=== PATIENT | male | born 1960 | race Caucasian/White ===

== ENCOUNTER 2024-12-14 18:54 | Inpatient (IN) | payer MEDICAID, SELFPAY ==
[2024-12-14 18:57] VITALS: BMI 28.0
[2024-12-14 19:09] VITALS: BP 122/83; BP 152/83; PULSE 62; RESP 24; TEMP 36.7; O2SAT 100
--- NOTE | 2024-12-14 19:15 | XR_ITS ---
Examination: AP chest single view TECHNIQUE: AP portable supine chest single view Date and time: December 14, 2024 1935 hours INDICATIONS: Chest pain and weakness today. FINDINGS: Reduced inspiratory effort Normal heart size Subsegmental atelectasis the right base No pulmonary edema or lobar pneumonia. IMPRESSION: No pulmonary edema or lobar pneumonia
--- NOTE | 2024-12-14 19:17 | PD.EDRME ---
Rapid Medical Screening Exam [facility] Arrival date/time: 12/14/24 18:54 64M with history of inguinal hernia and no known PMH (patient doesn't go to doctors) presents to ED with 1 day of ab pain, weakness, and N/V. Chief Complaint: Abdominal Pain Vital signs: Vital Signs Pulse Rate 62 12/14/24 19:09 Respiratory Rate 24 H 12/14/24 19:09 Blood Pressure 152/83 H 12/14/24 19:09 Pulse Oximetry (%) 100 12/14/24 19:09
--- NOTE | 2024-12-14 19:30 | EDNOTE_ITS ---
ED Abdominal Pain RME/HPI General Chief Complaint: Abdominal Pain Stated complaint: ABD PAIN Time seen by provider: 12/14/24 19:24 Arrival date/time: 12/14/24 18:54 Source: patient and family (Son) Mode of arrival: wheelchair Limitations: no limitations RME / HPI RME / HPI narrative: 12/14/24 18:54 64M with history of inguinal hernia and no known PMH (patient doesn't go to doctors) presents to ED with 1 day of ab pain, weakness, and N/V. DR. PACHECO?Danielle MAIN ED EVALUATION: 64-year-old male with history of inguinal hernia presenting to the emergency department via private auto in wheelchair BIB son who is presenting for chief complaint of severe, sharp and diffused abdominal pain that is worse in the right inguinal area x 0500 hours. Per son, patient has had inguinal hernia for a very long time . No associated symptoms include nausea or urinary symptoms. Denies any heavy lifting or straining to go to the bathroom. Patient denies any other associated symptoms or medical complaints. - PMH: Inguinal hernia - PSH: Denies - Social history: Denies - Current medications: Reviewed PCP is N/A MD complaint: abdominal pain Onset (ago): hour(s) (14) Consistency: constant Location: diffuse Severity: severe Quality: sharp Radiation: suprapubic Migration to: suprapubic Context: other (Inguinal hernia) Associated symptoms: other (No vomiting, no fever, no chills, positive nausea. No dysuria.) Treatments prior to arrival: other Related Data Allergies Allergy/AdvReac Type Severity Reaction Status Date / Time No Known Allergies Allergy Verified 12/14/24 19:01 Review of Systems Review of Systems Systems Reviewed: All systems reviewed, normal except as documented Gastrointestinal Gastrointestinal: Reports abdominal pain, Denies nausea and Denies vomiting Genitourinary Genitourinary: Denies difficulty urinating, Denies dysuria, Reports testicular pain, Denies urinary incontinence and Denies urinary urgency Past Medical History Past Medical History GENITOURINARY: Positive Inguinal Hernia Social History SMOKING STATUS: Current some day smoker ED Exam General Limitations: Present no limitations; Absent altered mental status General appearance: Present in distress and other (Appears acutely uncomfortable, shaking, dry mucous membranes) Head Head exam: Present atraumatic Eye Eye exam: Present normal appearance, PERRL and EOMI; Absent scleral icterus or conjunctival injection ENT ENT exam: Present normal exam, normal oropharynx and mucous membranes dry Neck Neck exam: Present normal inspection and full ROM; Absent tenderness or meningismus Chest Chest inspection: Present normal inspection and symmetric chest wall rise; Absent rash Respiratory Respiratory exam: Present normal lung sounds bilaterally; Absent respiratory distress, wheezes or stridor Cardiovascular Cardiovascular exam: Present other (Hypotensive) Abdominal Exam Abdominal exam: Present guarding, diminished bowel sounds and other (Fullness to right inguinal area, No tightness, ); Absent distention or rebound exam: Present scrotal swelling, normal testicular lie and other (Nurse at the bedside during the exam. Bilateral testicular swelling the size of grapefruit's, right greater than left. No overlying skin changes. No color change. Right inguinal fullness and tenderness palpation. Unable to discern testicle versus scrotum.); Absent testicular tenderness or circumcised Expanded Exam Scrotal exam: bilateral: testicular swelling (8 cm BL) Extremities Exam Extremities exam: Present normal inspection and full ROM; Absent normal capillary refill, pedal edema or joint swelling Back Exam Back exam: Present normal inspection and full ROM; Absent CVA tenderness (R) or CVA tenderness (L) Neurological Exam Neurological exam: Present alert, oriented X3 and CN II-XII intact Psychiatric Psychiatric exam: Present normal affect and normal mood Skin Skin exam: Present warm, dry, intact and normal color Course Course Course Narrative: CXR is ordered for determining etiology of weakness. Quality Measures none Orders Category Date Time Status CT Screening NOW Care 12/14/24 19:[address] Screening NOW Care 12/14/24 19:32 Completed EKG (ED ONLY) *Do not use* NOW Care 12/14/24 19:15 Completed Insert IV NOW Care 12/14/24 19:15 Active Consult to General Surgery Stat Cons 12/14/24 22:[address] angio chest abdomen pelvis Stat Exams 12/14/24 19:32 Completed EKG (ED Only) Stat Exams 12/14/24 19:15 Ordered XR chest 1V portable Stat Exams 12/14/24 19:15 Completed B-Type Natriuretic Peptide Stat Lab 12/14/24 19:42 Completed Blood Culture (Lab) Stat Lab 12/14/24 19:43 Received CBC Stat Lab 12/14/24 19:42 Completed Comprehensive Metabolic Panel Stat Lab 12/14/24 19:42 Completed Drug Screen,Urine Stat Lab 12/14/24 19:15 Ordered Lactate (Lactic Acid) Stat Lab 12/14/24 19:42 Completed Lactic Acid, 3 HR Stat Lab 12/14/24 22:55 Completed Lipase Stat Lab 12/14/24 19:42 Completed Magnesium Stat Lab 12/14/24 19:42 Completed Partial Thromboplastin Time Stat Lab 12/14/24 19:42 Completed Procalcitonin Stat Lab 12/14/24 19:42 Completed Prothrombin Time with INR Stat Lab 12/14/24 19:42 Completed Troponin I Stat Lab 12/14/24 19:42 Completed Type and Screen Stat Lab 12/14/24 23:07 Completed Urinalysis Stat Lab 12/14/24 19:15 Ordered HYDROmorphone INJ [Dilaudid Inj] Med 12/14/24 23:07 Active 1 mg IVP Q4HR PRN HYDROmorphone INJ [Dilaudid Inj] Med 12/14/24 22:34 Discontinued 1 mg IVP X1 ONE Morphine Inj Med 12/14/24 23:07 Active 2 mg IVP Q6HR PRN Morphine Inj Med 12/14/24 19:29 Discontinued 4 mg IVP X1 ONE Morphine Inj Med 12/14/24 22:08 Discontinued 4 mg IVP X1 ONE Ondansetron Inj [Zofran Inj] Med 12/14/24 19:17 Discontinued 4 mg IV X1 ONE Ondansetron Inj [Zofran Inj] Med 12/14/24 22:41 Discontinued 4 mg IVP X1 ONE Ringers Lactated 1000 ml [Lactated Ringers] 1,000 ml Med 12/14/24 19:15 Discontinued IV 999 mls/hr Sodium Chloride 0.9% 1000 ml [Ns] 1,000 ml Med 12/14/24 19:15 Active IV 100 mls/hr Sodium Chloride 0.9% 1000 ml [Ns] 1,000 ml Med 12/14/24 22:41 Discontinued IV 999 mls/hr Vital Signs Vital signs: Vital Signs Temperature 98.1 F 12/14/24 19:09 Pulse Rate 62 12/14/24 19:09 Respiratory Rate 24 H 12/14/24 19:09 Blood Pressure 152/83 H 12/14/24 19:09 Pulse Oximetry (%) 100 12/14/24 19:09 Abdominal Pain MDM MDM Narrative MDM Narrative:: Scribe Attestation: 12/14/2024 - I, Donna Alexander, am scribing for and in the presence of Dr. Pacheco. Provider Notation: Although this document has been carefully reviewed, there may still be some phonetic and other typographical errors.? These errors are purely grammatical due to imperfections in the software program and should not be construed in any way to compromise the substance of the patient's medical care during this visit. 64-year-old male with history of inguinal hernia presenting to the emergency department via private auto in wheelchair BIB son who is presenting for chief complaint of severe, sharp and diffused abdominal pain that is worse in the right inguinal area x 0500 hours. ROS: diffused abdominal pain, worse in right inguinal area x 14 hours. EDC: Patient is immediately placed into room to after evaluated at triage. The patient is placed in Trendelenburg and IV morphine is ordered. Because of concern of underlying abdominal emergency, labs and CT of chest abdomen and pelvis are obtained. Patient returns from CT and has slight improvement in pain but is still complaining of pain. Dilaudid is ordered. Patient is not vomiting at this time but I do suspect that this is a surgical problem. Once CT results are back I discussed the case with Dr. Coy, the general surgeon on-call and at this time I recommend that she come and evaluate the patient and likely take the patient to the operating room tonight. 2330: Patient is still not vomiting at this time his pain is slightly improved but still present. Will keep patient NPO. Lactic acid is 2.6 and hemoglobin suggest likely dehydration. Will treat with 20 mL/kg bolus. Procalcitonin is normal. Chest x-ray without pneumonia. No aortic dissection is noted on CT scan. Discussed with the medicine team and they have agreed to admit the patient with surgical consult. 0000: Patient to the OR. Differential diagnoses include ischemic bowel, aortic dissection, intra- abdominal emergency, incarcerated hernia, strangulated hernia, small bowel obstruction, acute pain. Patient data External records reviewed:: [facility] previous records (No prior ED records available for review) Clinical information provided by:: patient and family (Son: Patient has had inguinal hernia for a very long time . ) Social determinants that could affect healthcare access:: none Patient has the following chronic illnesses:: Inguinal hernia How is presenting disease/condition affected by chronic disease/condition?: exacerbated by Evaluation data The following diagnostics were reviewed and interpreted by me:: lab results, radiology exam(s) and EKG tracing(s) (EKG manual reading, December 14, 2024 1912 hours, my interpretation: normal sinus rhythm, 61 BPM, QTc is 420 ms, QRS is 88 ms.) Lab and/or radiology exams considered but not ordered:: None Interpretation Summary: RADIOLOGY Chest X-Ray: CXR, my interpretation: reviewed, interpreted, and agreed with radiologist report; see below. FINDINGS: Reduced inspiratory effort Normal heart size Subsegmental atelectasis the right base No pulmonary edema or lobar pneumonia. IMPRESSION: No pulmonary edema or lobar pneumonia Chest/Abdomen/Pelvis CTA: Findings: AP dimension ascending thoracic aorta 3.9 cm no thoracic aortic aneurysm dilatation Pulmonary artery opacification is poor, no pulmonary artery filling defects No paratracheal tracheobronchial or bronchopulmonary adenopathy COPD with multiple areas of airspace destruction No pneumonia or pulmonary edema Multiple small liver lesions which may represent cysts No gallstones Spleen not enlarged No pancreatic mass Nodular thickening left adrenal gland Lower pole 5.7 cm right renal cyst Multiple fluid distended small bowel loops in the anterior abdomen Normal appendix Edema surrounds some of the small bowel loops in the lower abdomen for instance axial image 427 although no definite free air Incarcerated small bowel is present in a right inguinal hernia Large left inguinal hernia, which contains a portion of the bladder IMPRESSION: Negative for pulmonary artery emboli No pneumonia or pulmonary edema High-grade mechanical small bowel obstruction secondary to incarcerated small bowel in a right inguinal hernia, edema is present surrounding some loops of the small bowel worrisome for ischemic small bowel, recommend surgical consultation LABS WBC 13.8, Hgb 17.2, Neut # 11.0, Immature Gran # 0.07, Immature Gran % 1%. Lactic Acid 2.4, Alkaline Phosphatase 119. Chloride 108, Carbon Dioxide 17.9, Estimated Creatinine Clear Calc 60.8, BUN/Creatinine Ratio 7, Glucose 165, Lactic Acid 2.4. Medications / Prescriptions Medications or Prescriptions considered but not ordered:: None Medication administrations:: Medication Administration History Acetaminophen (Acetaminophen 325 Mg Tablet) 650 mg PO Q6H PRN; Protocol PRN Reason: Fever >100.3 or pain 1-3 Stop: 01/13/25 23:12 Acetaminophen (Acetaminophen Supp 650 Mg Supp) 650 mg [place] Q6HR PRN; Protocol PRN Reason: Fever > 100.3 or pain 1-3 Stop: 01/13/25 23:12 Albuterol/Ipratropium (Albuterol/Ipratropium (Duoneb) Rt Amy 3 Ml Nebu) 3 ml INH Q4HRRT PRN PRN Reason: SHORTNESS OF BREATH Stop: 01/14/25 00:34 Hydromorphone HCl (Hydromorphone Inj 2 Mg/Ml Vial) 1 mg IVP Q4HR PRN PRN Reason: Pain 7-10 Stop: 12/19/24 23:06 Hydromorphone HCl (Hydromorphone Inj 2 Mg/Ml Vial) 0.5 mg IVP Q10MIN PRN PRN Reason: severe pain 7-10 Sodium Chloride (Ns) 1,000 mls @ 100 mls/hr IV .Q10H STEVEN Stop: 01/13/25 19:14 Last Admin: 12/14/24 19:42 Dose: 100 mls/hr Documented By: JUANCHO Labetalol HCl (Labetalol Inj 5 Mg/Ml Vial 20 Ml) 5 mg IVP Q10MIN PRN PRN Reason: SBP >180 DBP>100 or HR >100 Metoprolol Tartrate (Metoprolol Tartrate Inj 1 Mg/Ml Amp 5 Ml) 2.5 mg IVP PRN PRN PRN Reason: Heart Rate- High Stop: 01/14/25 00:34 Morphine Sulfate (Morphine Sulf Inj 10 Mg/Ml Vial) 2 mg IVP Q6HR PRN PRN Reason: pain 4-6 Promethazine HCl (Promethazine Inj 25 Mg/Ml Vial) 12.5 mg IV Q30M PRN PRN Reason: NAUSEA Discontinued Medications Bupivacaine HCl (Bupivacaine Mpf 0.5% 30 Ml Vial) Confirm Administered Dose 30 ml .ROUTE .STK-MED ONE Stop: 12/15/24 01:05 Cefazolin Sodium (Cefazolin Inj 1 Gm Vial) Confirm Administered Dose 2 gm .ROUTE .STK-MED ONE Stop: 12/15/24 00:44 Dexamethasone Sodium Phosphate (Dexamethasone Sod Phos Inj 10 Mg/Ml Vial) Confirm Administered Dose 10 mg .ROUTE .STK-MED ONE Stop: 12/14/24 23:49 Epinephrine HCl (Epinephrine Inj 1 Mg/Ml Amp) Confirm Administered Dose 1 mg .ROUTE .STK-MED ONE Stop: 12/15/24 01:03 Fentanyl Citrate (Fentanyl Cit Inj 50 Mcg/Ml Amp 2ml) Confirm Administered Dose 100 mcg .ROUTE .STK-MED ONE Stop: 12/14/24 23:49 Fentanyl Citrate (Fentanyl Cit Inj 50 Mcg/Ml Amp 2ml) 50 mcg IVP Q5M PRN PRN Reason: PAIN SCALE 4-6 (Moderate Stop: 12/15/24 02:35 Hydralazine HCl (Hydralazine Inj 20 Mg/Ml Vial) 10 mg IVP X1 ONE Stop: 12/15/24 02:35 Hydromorphone HCl (Hydromorphone Inj 2 Mg/Ml Vial) 1 mg IVP X1 ONE Stop: 12/14/24 22:35 Last Admin: 12/14/24 23:13 Dose: 1 mg Documented By: JASPREET Lactated Ringer's (Lactated Ringers) 1,000 mls @ 999 mls/hr IV .Q1H1M ONE Stop: 12/14/24 20:15 Last Infusion: 12/14/24 20:39 Dose: Infused Documented By: Admin: 12/14/24 19:38 Dose: 999 mls/hr Documented By: JUANCHO Sodium Chloride (Ns) 1,000 mls @ 999 mls/hr IV .Q1H1M ONE Stop: 12/14/24 23:41 Last Admin: 12/14/24 23:13 Dose: 999 mls/hr Documented By: PINOR Morphine Sulfate (Morphine Sulf Inj 10 Mg/Ml Vial) 4 mg IVP X1 ONE Stop: 12/14/24 19:30 Last Admin: 12/14/24 20:29 Dose: 4 mg Documented By: MM Morphine Sulfate (Morphine Sulf Inj 10 Mg/Ml Vial) 4 mg IVP X1 ONE Stop: 12/14/24 22:09 Last Admin: 12/14/24 22:16 Dose: 4 mg Documented By: MM Ondansetron HCl (Ondansetron Inj 2 Mg/Ml Inj 2 Ml) 4 mg IV X1 ONE; Protocol Stop: 12/14/24 19:18 Last Admin: 12/14/24 20:30 Dose: 4 mg Documented By: MM Ondansetron HCl (Ondansetron Inj 2 Mg/Ml Inj 2 Ml) 4 mg IVP X1 ONE; Protocol Stop: 12/14/24 22:42 Last Admin: 12/14/24 23:13 Dose: 4 mg Documented By: PINOR Ondansetron HCl (Ondansetron Inj 2 Mg/Ml Inj 2 Ml) Confirm Administered Dose 4 mg .ROUTE .STK-MED ONE Stop: 12/14/24 23:49 Ondansetron HCl (Ondansetron Inj 2 Mg/Ml Inj 2 Ml) 4 mg IVP X1 ONE Stop: 12/15/24 00:36 Phenylephrine HCl (Phenylephrine Inj In Ns 100 Mcg/Ml 10 Ml Syringe) Confirm Administered Dose 1,000 mcg .ROUTE .STK-MED ONE Stop: 12/15/24 00:43 Phenylephrine HCl (Phenylephrine Inj In Ns 100 Mcg/Ml 10 Ml Syringe) Confirm Administered Dose 1,000 mcg .ROUTE .STK-MED ONE Stop: 12/15/24 00:57 Propofol (Propofol Inj 10 Mg/Ml Vial 20 Ml) Confirm Administered Dose 200 mg IV .STK-MED ONE Stop: 12/14/24 23:49 Rocuronium [place] (Rocuronium Inj 10 Mg/Ml Vial 10 Ml) Confirm Administered Dose 100 mg .ROUTE .STK-MED ONE Stop: 12/14/24 23:49 Sugammadex Sodium (Sugammadex Inj 100 Mg/Ml 2ml Vial) Confirm Administered Dose 200 mg .ROUTE .STK-MED ONE Stop: 05/23/25 23:49 See above if any Consultations Consultation(s) initiated? (list below): Yes Consultation #1 (Physician, Specialty, Details): Dr. Coy called for consult. Made aware of the patient?s HPI, PMHx, lab and/or radiology results. Dr. Coy will be coming in for evaluation. Time: 22:37 Consultation #2 (Physician, Specialty, Details): Dr. Mariee, our Hospitalist, made aware of the patient?s HPI, PMHx, lab and/or radiology results. Treatment plan was discussed. Will admit for further evaluation and management. Accepts patient for admission. Time: 22:42 Diagnosis Differential diagnosis abdominal pain: other (dissection, ischemic valve, intra- abdominal emergency, incarcerated hernia) Most likely diagnosis given after review of the tests above:: Small bowel obstruction, Elevated lactic acid, Inguinal hernia of right side with obstruction, Left inguinal hernia. Admission Indicated Admission indicated?: indicated Explain why admission is indicated or not indicated:: Elevated lactic acid, small bowel and inguinal hernia with obstruction. Admission Request Was there a request for admission?: Yes Admission Attestation Admission request attestation: Discussed case with [] from Hospitalist service regarding admission. Discussed patients ED course, exam findings, labs, and radiology results. The Hospitalist [agrees,declines] to accept the patient for admission. Disposition Plan Disposition Plan: Admit Critical Care Time Critical Care Time Critical Care Time: Yes Total Critical Care Time (min.): 45 Attestation: The high probability of sudden, clinically significant deterioration in the patient?s condition required the highest level of my preparedness to intervene urgently. The services I provided to this patient were to treat and/or prevent clinically significant deterioration. Services included the following: chart data review, reviewing nursing notes and/or old charts, documentation time, marketing operations consultant collaboration regarding findings and treatment options, medication orders and management, direct patient care, vital sign assessments and ordering, interpreting and reviewing diagnostic studies and lab tests. This time excludes any procedures done on this patient. Discharge Plan Plan Patient Disposition: Admit Acute Care w/in Hospital Problem List Clinical Impression: Small bowel obstruction, Inguinal hernia of right side with obstruction, Elevated lactic acid level, Hernia, inguinal, left
--- NOTE | 2024-12-14 19:32 | XR_ITS ---
Examination: CTA chest, with intravenous contrast. CTA abdomen, with intravenous contrast. CTA pelvis, with intravenous contrast. 2-D sagittal and coronal reconstructions. 3-D reconstructions. Date and time of exam: 03/16/2025 2048 hours INDICATIONS: Chest and upper abdominal pain weakness today CTDI vol (mgy) 14.9 DLP (MGycm) 1429 Technique: Multiple CTA images, 2.0 mm slice thickness, obtained chest, abdomen, pelvis, with the high-resolution 64 slice scanner. 100 cc Isovue 370 is administered intravenously. Sagittal and coronal 2-D reconstructions are obtained. 3-D reconstructions, angiographic images are obtained. 3-D postprocessing, including vascular maximum intensity projections. Low dose protocols were performed. One or more of the following dose reduction techniques were used; automated exposure control, adjustment of the mA and/or KV according to patient size, use of iterative reconstruction technique. Findings: AP dimension ascending thoracic aorta 3.9 cm no thoracic aortic aneurysm dilatation Pulmonary artery opacification is poor, no pulmonary artery filling defects No paratracheal tracheobronchial or bronchopulmonary adenopathy COPD with multiple areas of airspace destruction No pneumonia or pulmonary edema Multiple small liver lesions which may represent cysts No gallstones Spleen not enlarged No pancreatic mass Nodular thickening left adrenal gland Lower pole 5.7 cm right renal cyst Multiple fluid distended small bowel loops in the anterior abdomen Normal appendix Edema surrounds some of the small bowel loops in the lower abdomen for instance axial image 427 although no definite free air Incarcerated small bowel is present in a right inguinal hernia Large left inguinal hernia, which contains a portion of the bladder IMPRESSION: Negative for pulmonary artery emboli No pneumonia or pulmonary edema High-grade mechanical small bowel obstruction secondary to incarcerated small bowel in a right inguinal hernia, edema is present surrounding some loops of the small bowel worrisome for ischemic small bowel, recommend surgical consultation
[2024-12-14] MEDS: RINGERS LACTATED 1000 ML 1,000 ML 999 ML IV (19:38)
[2024-12-14] MEDS: SODIUM CHLORIDE 0.9% 1000 ML 1,000 ML 100 ML IV (19:42)
[2024-12-14 19:49] LABS: Lactate (Lactic Acid) 2.4 mMol/L (0.4-2.0)
[2024-12-14 19:50] LABS: Basophils # (Auto) 0.1 Thou/mm3 (0.0-0.2); Basophils % (Auto) 0 % (0-2.5); Eosinophils # (Auto) 0.1 Thou/mm3 (0.0-0.5); Eosinophils % (Auto) 1 % (0-10); Hematocrit 49.3 % (41.0-53.0); Hemoglobin 17.2 g/dL (13.5-16.0); Immature Granulocytes % (Auto) 1 % (0-0); Immature Granulocytes Auto 0.07 Thou/mm3 (0.00-0.00); Lymphocytes # (Auto) 1.7 Thou/mm3 (1.0-4.8); Lymphocytes % (Auto) 13 % (10-50); Mean Corpuscular HGB Conc 34.9 g/dl (31.0-37.0); Mean Corpuscular Hemoglobin 29.8 pg (25.0-35.0); Mean Corpuscular Volume 85 fL (80-100); Monocytes # (Auto) 0.8 Thou/mm3 (0.0-0.8); Monocytes % (Auto) 6 % (0-12); Neutrophils % (Auto) 80 % (37-80); Nucleated Red Blood Cell % 0 /100 WBC (0); Platelet Count 291 Thou/mm3 (140-440); RDW Standard Deviation 39.2 fL (35.1-43.9); Red Blood Count 5.77 Miln/mm3 (4.50-5.90); White Blood Count 13.8 Thou/mm3 (3.8-10.6)
[2024-12-14 20:05] LABS: INR 1.1 (0.9-1.3); Partial Thromboplastin Time 26.1 Seconds (22.0-36.0); Prothrombin Time 11.7 Seconds (9.0-12.2)
[2024-12-14 20:07] LABS: B-Type Natriuretic Peptide 28 pg/mL (0-100)
[2024-12-14] MEDS: MORPHINE SULF INJ 10 MG/ML VIAL 4 MG IVP ×2 (20:29→22:16)
[2024-12-14 20:30] LABS: Troponin I < 0.020 ng/mL (0.0-0.045)
[2024-12-14] MEDS: ONDANSETRON INJ 2 MG/ML INJ 2 ML 4 MG IV (20:30)
[2024-12-14 20:44] LABS: Alanine Aminotransferase 20 U/L (10-49); Albumin, Serum 4.6 gm/dL (3.4-4.8); Albumin/Globulin Ratio 1.5 (1.2-2.2); Alkaline Phosphatase 119 U/L (46-116); Anion Gap 14 (7-16); Aspartate Amino Transferase 22 U/L (0-34); BUN/Creatinine Ratio 7 Ratio (12-20); Bilirubin,Total 0.9 mg/dL (0.3-1.2); Blood Urea Nitrogen 9 mg/dL (9-23); Calcium 9.3 mg/dL (8.3-10.6); Calcium (Corrected) 9.3 mg/dL (8.5-10.1); Carbon Dioxide 17.9 mMol/L (20.0-31.0); Chloride 108 mMol/L (98-107); Creatinine (Component) 1.3 mg/dL (0.6-1.3); Estimated Creatinine Clearance 60.8 mL/min (>60); Globulin 3.1 gm/dL (2.3-3.5); Glucose 165 mg/dL (74-106); Lipase 39 U/L (12-53); Osmolality,Calculated 282 (275-295); Potassium 4.4 mMol/L (3.4-5.1); Sodium 140 mMol/L (136-145); Total Protein 7.7 gm/dL (5.7-8.2); eGFR > 60 See Note
[2024-12-14 22:47] LABS: Reflex Lactate? Y
[2024-12-14] MEDS: SODIUM CHLORIDE 0.9% 1000 ML 1,000 ML 999 ML IV (23:13)
[2024-12-14] MEDS: HYDROmorphone INJ 2 MG/ML VIAL 1 MG IVP (23:13)
[2024-12-14] MEDS: ONDANSETRON INJ 2 MG/ML INJ 2 ML 4 MG IVP (23:13)
[2024-12-14 23:14] LABS: Lactic Acid, 3 HR 1.9 mMol/L (0.4-2.0)
[2024-12-14 23:19] VITALS: BP 182/112; PULSE 91; RESP 18; TEMP 36.6; O2SAT 91
--- NOTE | 2024-12-14 23:28 | PD.RESHP ---
Documentation for date of: 12/14/24 HPI History of Present Illness Chief complaint: severe abdominal pain History of present illness: The patient is a 64-year-old male with previous medical history in inguinal hernia who came into the ED with severe diffuse abdominal pain that is worse on the right side, waxing and waning started approximately 5 AM the previous day. 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 Per patient he had inguinal hernia for at least a few years. Patient reported that he usually can reduce the hernia, he tried to do it this morning, but was unable to do so He denies traumas. Last bowel movement was 2 days ago, denies blood in the stool. He vomited once in the ED. ED course: Initial vitals blood pressure 152/83, pulse 62, respiratory rate 24, afebrile, saturating well on room air. Labs showed WBC count 13.8, hemoglobin 17.2, platelets 291, INR 1.1, sodium 140, potassium 4.4, creatinine 1.3, EGFR more than 60. Lactic acid initially was 2.4, AST 22, ALT 20, alkaline phosphatase 119, troponin are less than 0.020, procalcitonin 0.1. Chest x-ray was negative for edema or pneumonia. Chest abdomen and pelvis CTA showed high-grade mechanical small bowel obstruction secondary to incarcerated small bowel in the right inguinal hernia with edema surrounding some loops of the small bowel. It also showed large left inguinal hernia containing a portion of the bladder. In the ED he received 1 L of LR, started on normal saline at 100 mL/h, morphine 4 mg x 2, Zofran 4 mg x 2, hydromorphone 1 mg x 1. Surgeon Dr. Mckeon was consulted and is planning to operate on him. Patient is going to be admitted for acute right inguinal hernia incarceration surgical repair and management. 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, does not drink Medications: Denies taking medications, denies taking blood thinners Allergies: Denies Surgeries: Denies Review of Systems Review of Systems Systems Reviewed: All systems reviewed, normal except as documented Past Medical History Past Medical History GENITOURINARY: Positive Inguinal Hernia Social History SMOKING STATUS: Current some day smoker Exam Vital Signs Temp Pulse Resp BP Pulse Ox O2 Del Method 97.8 F 91 18 182/112 H 91 L Room Air 12/14/24 23:19 12/14/24 23:19 12/14/24 23:19 12/14/24 23:19 12/14/24 23:19 12/14/24 23:19 Narrative Exam Physical Exam General: Awake and in acute distress. Moans in pain, lies on the right side. HEENT: Normocephalic, atraumatic, mucous membranes moist. Heart: Regular rate and rhythm, no murmurs. Lungs: Clear to auscultation with no wheezing or crackles. Abdomen: Firm, distended, diffusely tender, weak bowel sounds in the upper abdomen, absent bowel sounds in the lower abdomen. ?Guarding and diffuse rebound tenderness. Scrotum is enlarged, more on the right side, firm and tender to palpation Neurologic: Alert, no gross neurological deficit, and patient able to move all 4 extremities. Extremities: No edema. Skin: No rash or ecchymoses. Results: Labs 12/15/24 05:44 12/15/24 05:44 Labs: Short CBC 12/14/24 Range/Units 19:42 WBC 13.8 H (3.8-10.6) Thou/mm3 Hgb 17.2 H (13.5-16.0) g/dL Hct 49.3 (41.0-53.0) % Plt Count 291 (140-440) Thou/mm3 BMP 12/14/24 19:42 Sodium 140 Potassium 4.4 Chloride 108 H Carbon Dioxide 17.9 L BUN 9 Creatinine 1.3 Glucose 165 H Calcium 9.3 Cardiac Enzymes 12/14/24 Range/Units 19:42 Troponin I < 0.020 (0.0-0.045) ng/mL Liver Function 12/14/24 Range/Units 19:42 Total Bilirubin 0.9 (0.3-1.2) mg/dL AST 22 (0-34) U/L ALT 20 (10-49) U/L Alkaline Phosphatase 119 H (46-116) U/L Albumin 4.6 (3.4-4.8) gm/dL Quality Measures Quality Measures VTE prophylaxis Advance care planning discussed with:: patient Medications Home Medications and Allergies Home Medications ?Medication ?Instructions ?Recorded ?Confirmed ?Type No Known Home Medications 12/15/24 12/15/24 History Allergies Allergy/AdvReac Type Severity Reaction Status Date / Time No Known Allergies Allergy Verified 12/14/24 19:01 Visit Medications Acetaminophen (Acetaminophen 325 Mg Tablet) 650 mg PO Q6H PRN; Protocol PRN Reason: Fever >100.3 or pain 1-3 Stop: 01/13/25 23:12 Acetaminophen (Acetaminophen Supp 650 Mg Supp) 650 mg OR Q6HR PRN; Protocol PRN Reason: Fever > 100.3 or pain 1-3 Stop: 01/13/25 23:12 Hydromorphone HCl (Hydromorphone Inj 2 Mg/Ml Vial) 1 mg IVP Q4HR PRN PRN Reason: Pain 7-10 Stop: 12/19/24 23:06 Sodium Chloride (Ns) 1,000 mls @ 100 mls/hr IV .Q10H STEVEN Stop: 01/13/25 19:14 Last Admin: 12/14/24 19:42 Dose: 100 mls/hr Sodium Chloride (Ns) 1,000 mls @ 999 mls/hr IV .Q1H1M ONE Stop: 12/14/24 23:41 Last Admin: 12/14/24 23:13 Dose: 999 mls/hr Morphine Sulfate (Morphine Sulf Inj 10 Mg/Ml Vial) 2 mg IVP Q6HR PRN PRN Reason: pain 4-6 Discontinued Medications Hydromorphone HCl (Hydromorphone Inj 2 Mg/Ml Vial) 1 mg IVP X1 ONE Stop: 12/14/24 22:35 Last Admin: 12/14/24 23:13 Dose: 1 mg Lactated Ringer's (Lactated Ringers) 1,000 mls @ 999 mls/hr IV .Q1H1M ONE Stop: 12/14/24 20:15 Last Infusion: 12/14/24 20:39 Dose: Infused Morphine Sulfate (Morphine Sulf Inj 10 Mg/Ml Vial) 4 mg IVP X1 ONE Stop: 12/14/24 19:30 Last Admin: 12/14/24 20:29 Dose: 4 mg Morphine Sulfate (Morphine Sulf Inj 10 Mg/Ml Vial) 4 mg IVP X1 ONE Stop: 12/14/24 22:09 Last Admin: 12/14/24 22:16 Dose: 4 mg Ondansetron HCl (Ondansetron Inj 2 Mg/Ml Inj 2 Ml) 4 mg IV X1 ONE; Protocol Stop: 12/14/24 19:18 Last Admin: 12/14/24 20:30 Dose: 4 mg Ondansetron HCl (Ondansetron Inj 2 Mg/Ml Inj 2 Ml) 4 mg IVP X1 ONE; Protocol Stop: 12/14/24 22:42 Last Admin: 12/14/24 23:13 Dose: 4 mg Assessment & Plan Plan The patient is a 64-year-old male with previous history of inguinal hernia who came into the ED with severe diffuse abdominal pain that is worse on the right side, waxing and waning started approximately 5 AM the previous day. #Right inguinal hernia incarceration #Small bowel obstruction #Large left inguinal hernia Patient has a history of inguinal hernia. Pain has started at 5 AM the previous day. CT showed high grade SBO and incarcerated right inguinal hernia. LA 2.4, downtrended to 1.9. Plan: - surgery consulted, operation is planned - pain control as needed - NPO - EKG - med tele bed - NS @100 ml/hr - repeat LA in the AM Health maintenance: FEN: NPO DVT prophylaxis: SCDs GI prophylaxis: none Dispo: med surg tele bed CODE STATUS: Full code Plan of care discussed with attending Dr. Mariee. Felicita Riojas MD, PGY 1. Attending Provider Attestation/Addendum I have examined the patient, reviewed labs and imaging findings, discussed the case with the resident(s), and reviewed entered orders. I agree with the plan of care as outlined in this note, with these additional summaries/recommendations: 64-year-old male with known history of inguinal hernia presented to the ED with severe diffuse abdominal pain worse on the right side found to have incarcerated inguinal hernia on CT and abdomen pelvis. General surgery was consulted who will take patient to the OR for emergency surgery for incarcerated inguinal hernia. Patient also found to be tachycardic with elevated white count, blood cultures obtained will initiate patient on empiric Zosyn, follow blood cultures. Ken Mariee MD
--- NOTE | 2024-12-14 23:48 | PD.SURCONS ---
HPI Consult details History of present illness: 64M presenting with painful inguinal hernia. History obtained primarily from at bedside as pt is somewhat sedated from pain medication. Pt has a chronic R inguinal hernia which has been increasing in size over the past few months but as of this morning it became acutely painful prompting him to seek care in ER. He denies any nausea/vomiting but has remained in severe pain, CT concerning for ischemic small bowel contained in his known R inguinal hernia PMH: None PSHx: None Meds: None Allergies: NKDA Family hx: No known CRC Social hx: pt smokes 1-2 ppd Review of Systems Review of Systems ROS Unobtainable: All systems reviewed & no additional complaints except as documented Meds Home Medications and Allergies Allergies Allergy/AdvReac Type Severity Reaction Status Date / Time No Known Allergies Allergy Verified 12/14/24 19:01 Exam Vital Signs Temp Pulse Resp BP Pulse Ox O2 Del Method 97.8 F 91 18 182/112 H 91 L Room Air 12/14/24 23:19 12/14/24 23:19 12/14/24 23:19 12/14/24 23:19 12/14/24 23:19 12/14/24 23:19 Constitutional Constitutional: moderate distress and diaphoretic Routine Respiratory Exam Respiratory: Present no resp distress Routine Abdominal Exam Abdominal: Present soft Routine Exam Comments: large right inguinoscrotal hernia with erythema and tenderness of the scrotum, firm to touch Results Results: Laboratory Laboratory results: results reviewed Results: Imaging CT scan - abdomen: report reviewed and image reviewed Assessment & Plan Plan 64M presenting with signs and symptoms of an incarcerated/possibly strangulated right inguinoscrotal hernia. I explained risks of surgery including bleeding, infection, injury to nearby structures including nerves and vessels, and hernia recurrence. I also emphasized that cigarette smoking increases his risk. All questions were answered
[2024-12-15] VITALS (18 sets, daily range): BP systolic 107–166; BP diastolic 61–95; PULSE 67–103; RESP 13–93; TEMP 36.2–36.7; O2SAT 92–100; BMI 28.6
--- NOTE | 2024-12-15 00:22 | PC.NURSE ---
Pt leaving with preop nurses
--- NOTE | 2024-12-15 02:51 | ESOP_ITS ---
Date of Procedure 12/15/24 Pre Op Diagnosis Incarcerated right inguinal hernia Post Op Diagnosis Same Procedure Reduction and repair of right inguinal hernia Findings Right inguinal hernia containing viable small bowel Procedure Description Patient presented with acute incarceration of a chronic right inguinal hernia. He had severe pain and CT noted possible ischemic small bowel contained within the right inguinal hernia. He does have a history of cigarette smoking, 1 to 2 packs/day for years. Initially when I examined him he was somewhat sedated as he had recently received pain medication, however before entering the OR he was alert and oriented and expressed understanding of benefits and risks, including the likelihood that his hernia will recur in the setting of this emergency operation and cigarette smoking. Patient was brought to the operating room, SCDs were placed and general anesthesia was induced. A Francis was placed and he received preoperative antibiotics. He was prepped and draped in the usual sterile fashion. After timeout the right inguinal ligament was identified from the pubic tubercle to the ASIS. A transverse incision was made just above the pubic tubercle approximately 7 cm in length. First the skin was infiltrated with half percent Marcaine and the incision was made with #10 blade scalpel. Dissection was carried down with electrocautery through Adelina's fascia maintaining hemostasis. Once the external oblique was identified, it was incised along the direction of its fibers with a #15 blade. Metzenbaum scissors were then used to extend the incision in both directions opening up down to the external ring. The external oblique was grasped with hemostats on either side. The hernia sac along with the cord structures was circumferentially dissected from surrounding tissues using blunt dissection and a Omaha drain was placed around it. After that, the hernia sac was identified and from the cord structures. The Omaha drain was then placed around the cord structures alone. The hernia sac was opened with scissors and there was noted to be the serosanguineous fluid. There were no contents in the sac when it was opened, however at that time the scrotum was examined and noted to be significantly decreased in size. Probing the hernia sac superior laterally, I was able to enter the peritoneum and grasp the small bowel, and it appeared to be the small bowel which had been incarcerated as it was somewhat edematous but did not have signs of ischemia. The bowel was then reduced back into the peritoneal cavity and the hernia sac was ligated at its base using a Owen clamp and 0 Ethibond suture. After the stick suture was completed the hernia sac was transected with electrocautery and sent for pathology. As I had explained to the patient preoperatively I would likely not perform a definitive repair in the emergency setting, and his anatomy did not seem particularly favorable I opted not to place a mesh at this point. The wound was irrigated and the external oblique was closed with a 3-0 Vicryl suture in a running fashion. Additional half percent Marcaine was given into the subcutaneous tissue for a total of 30 cc. The subcutaneous tissue was approximated with interrupted 3-0 Vicryl sutures and the skin was closed with 4 Monocryl and reinforced with Dermabond. Patient was extubated and brought to PACU in stable condition Pathology / specimen Other (Hernia sac) Estimated Blood Loss 20 Surgeon Starla Coy MD Surgical Staff Operation Date: 12/15/24 00:15 Case Staff CLINICAL TRIALS SYSTEMS ADMINISTRATOR: Eran Morales RN First Assistant: Kimi Brambila
--- NOTE | 2024-12-15 02:52 | SUR.PHASEI ---
pt received from OR in [facility] 1. pt asleep but responds to voice, breathing unlabored on oxymask 8l, v/s stable. pt dressing to lower abd cdi. report received from Rand JOHN and Eran HERRERA.
--- NOTE | 2024-12-15 03:38 | SUR.PHASEI ---
pt asleep but responds to voice, breathing unlabored on 2 nc. v/s stable. pt dressing to lower abd cdi. report called to Brie JOHN. pt will be transferred to room at this time.
[2024-12-15 05:53] LABS: Lactate (Lactic Acid) 3.7 mMol/L (0.4-2.0)
[2024-12-15 05:59] LABS: Collection Type, Urine Catheter
[2024-12-15 06:04] LABS: Bilirubin,Urine Negative (Negative); Blood,Urine 1+ (Negative); Clarity,Urine Clear (Clear/Hazy); Color,Urine Lt-Yellow (Lt Yel-Yel); Glucose, Urine 2+ (Negative); Ketones,Urine Negative (Negative); Leukocyte Esterase,Urine Negative (Negative); Nitrite,Urine Negative (Negative); PH,Urine 5.5 (5.0-7.0); Protein,Urine Trace (Neg - Trace); RBC,Urine 29 /hpf (0-3); Specific Gravity,Urine 1.039 (1.001-1.035); Squamous Epithelial Cell,Urine 1 /hpf (0-5); Urobilinogen,Urine Negative mg/dL (0.0-1.0); WBC,Urine 10 /hpf (0-5)
[2024-12-15 06:14] LABS: Amphetamine/Methamp Scrn,U Positive (Negative); Barbiturate Screen,Urine Negative (Negative); Benzodiazepines Screen,Urine Negative (Negative); Benzoylecgonine Screen, Ur Negative (Negative); Fentanyl Screen,Urine Positive (Negative); Opiate Screen,Urine Positive (Negative); THC Screen,Urine Negative (Negative)
[2024-12-15 06:16] LABS: Basophils % (Auto) 0 % (0-2.5); Eosinophils % (Auto) 0 % (0-10); Hematocrit 48.5 % (41.0-53.0); Hemoglobin 16.3 g/dL (13.5-16.0); Immature Granulocytes % (Auto) 0 % (0-0); Immature Granulocytes Auto 0.07 Thou/mm3 (0.00-0.00); Lymphocytes # (Auto) 0.5 Thou/mm3 (1.0-4.8); Lymphocytes % (Auto) 3 % (10-50); Mean Corpuscular HGB Conc 33.6 g/dl (31.0-37.0); Mean Corpuscular Hemoglobin 29.9 pg (25.0-35.0); Mean Corpuscular Volume 89 fL (80-100); Monocytes # (Auto) 0.8 Thou/mm3 (0.0-0.8); Monocytes % (Auto) 5 % (0-12); Neutrophils # (Auto) 15.9 Thou/mm3 (1.8-7.7); Neutrophils % (Auto) 92 % (37-80); Nucleated Red Blood Cell % 0 /100 WBC (0); Platelet Count 258 Thou/mm3 (140-440); RDW Standard Deviation 40.9 fL (35.1-43.9); Red Blood Count 5.45 Miln/mm3 (4.50-5.90); White Blood Count 17.3 Thou/mm3 (3.8-10.6)
[2024-12-15 06:32] LABS: Alanine Aminotransferase 15 U/L (10-49); Albumin, Serum 3.7 gm/dL (3.4-4.8); Albumin/Globulin Ratio 1.5 (1.2-2.2); Alkaline Phosphatase 101 U/L (46-116); Anion Gap 9 (7-16); Aspartate Amino Transferase 16 U/L (0-34); BUN/Creatinine Ratio 10 Ratio (12-20); Bilirubin,Total 0.7 mg/dL (0.3-1.2); Blood Urea Nitrogen 12 mg/dL (9-23); Calcium 7.8 mg/dL (8.3-10.6); Carbon Dioxide 23.2 mMol/L (20.0-31.0); Chloride 109 mMol/L (98-107); Creatinine (Component) 1.2 mg/dL (0.6-1.3); Estimated Creatinine Clearance 65.9 mL/min (>60); Globulin 2.5 gm/dL (2.3-3.5); Glucose 178 mg/dL (74-106); Osmolality,Calculated 284 (275-295); Potassium 4.8 mMol/L (3.4-5.1); Sodium 141 mMol/L (136-145); Total Protein 6.2 gm/dL (5.7-8.2); eGFR > 60 See Note
[2024-12-15] MEDS: RINGERS LACTATED 500 ML 500 ML 999 ML IV (07:15)
[2024-12-15] MEDS: PIPER/TAZO 3.375 GM PREMIX 3.375 GM/50 ML BAG IV ×3 (08:38→21:02)
[2024-12-15 08:52] LABS: Reflex Lactate? Y
[2024-12-15] MEDS: CALCIUM CARBONATE 600 MG TABLET PO (10:06)
--- NOTE | 2024-12-15 10:53 | ESPR_ITS ---
Documentation for date of: 12/15/24 Subjective Subjective Interval history: Patient seen today at the bedside found awake, alert, orientedx3. No overnight events reported. Vitals and labs reviewed. Lactic acid downtrending after IV fluid bolus administration. Patient is postop status post emergent reduction. Plan is to advance diet and to encourage ambulation. And pain control. Exam Vital Signs Temp Pulse Resp BP Pulse Ox O2 Del Method O2 Flow Rate 97.7 F 95 19 119/76 92 L Room Air 2 12/15/24 08:00 12/15/24 08:00 12/15/24 08:00 12/15/24 08:00 12/15/24 08:00 12/15/24 04:35 12/15/24 03:35 Narrative Exam Physical Exam GENERAL: NAD, AAOx3 HEENT: Moist mucosa. Eyes open, symmetrical, & clear CARDIO: Heart RRR, no obvious murmurs PULM: No noted coughing/dyspnea CTA B/L, no R/W/R GI: Abdomen soft, nondistended, no pain on palpation. BSx4 SKIN/MSK/EXT: No wounds/rashes/edema/amputations, no pain on palpation. Pedal pulses present B/L NEURO: AAOx3, no focal neuro deficits, able to move all 4 extremities Objective Labs 12/16/24 05:04 12/16/24 05:04 Labs: Laboratory Results - last 24 hr 12/14/24 12/14/24 12/14/24 19:42 22:55 23:07 WBC 13.8 H RBC 5.77 Hgb 17.2 H Hct 49.3 MCV 85 MCH 29.8 MCHC 34.9 RDW Std Deviation 39.2 Plt Count 291 Neut % (Auto) 80 Lymph % (Auto) 13 Powell % (Auto) 6 Eos % (Auto) 1 Baso % (Auto) 0 Neut # (Auto) 11.0 H Lymph # (Auto) 1.7 Powell # (Auto) 0.8 Eos # (Auto) 0.1 Baso # (Auto) 0.1 Immature Gran # (Auto) 0.07 H Absolute Nucleated RBC 0.00 Immature Gran % 1 H Nucleated RBC % 0 PT 11.7 INR 1.1 APTT 26.1 Sodium 140 Potassium 4.4 Chloride 108 H Carbon Dioxide 17.9 L Anion Gap 14 BUN 9 Creatinine 1.3 Estim Creat Clear Calc 60.8 L eGFR > 60 BUN/Creatinine Ratio 7 L Glucose 165 H Calculated Osmolality 282 Lactic Acid 2.4 H 1.9 Calcium 9.3 Corrected Calcium 9.3 Magnesium 2.0 Total Bilirubin 0.9 AST 22 ALT 20 Alkaline Phosphatase 119 H Troponin I < 0.020 B-Natriuretic Peptide 28 Total Protein 7.7 Albumin 4.6 Globulin 3.1 Albumin/Globulin Ratio 1.5 Lipase 39 Procalcitonin 0.10 Ur Collection Type Urine Color Urine Clarity Urine pH Ur Specific [place] Urine Protein Urine Glucose (UA) Urine Ketones Urine Blood Urine Nitrite Urine Bilirubin Urine Urobilinogen (Auto) Ur Leukocyte Esterase Urine RBC Urine WBC Ur Squamous Epith Cells Urine Bacteria Urine Opiates Screen Urine Fentanyl Screen Ur Barbiturates Screen U Amphetamin/Meth Scrn U Benzodiazepines Scrn U Cocaine Metab Screen U Marijuana (THC) Screen Blood Type O Positive Antibody Screen NEGATIVE Blood Bank Wristband ID Yes 12/15/24 12/15/24 05:00 05:44 WBC 17.3 H RBC 5.45 Hgb 16.3 H Hct 48.5 MCV 89 MCH 29.9 MCHC 33.6 RDW Std Deviation 40.9 Plt Count 258 D Neut % (Auto) 92 H Lymph % (Auto) 3 L Powell % (Auto) 5 Eos % (Auto) 0 Baso % (Auto) 0 Neut # (Auto) 15.9 H Lymph # (Auto) 0.5 L Powell # (Auto) 0.8 Eos # (Auto) 0.0 Baso # (Auto) 0.0 Immature Gran # (Auto) 0.07 H Absolute Nucleated RBC 0.00 Immature Gran % 0 Nucleated RBC % 0 PT INR APTT Sodium 141 Potassium 4.8 Chloride 109 H Carbon Dioxide 23.2 Anion Gap 9 BUN 12 Creatinine 1.2 Estim Creat Clear Calc 65.9 eGFR > 60 BUN/Creatinine Ratio 10 L Glucose 178 H Calculated Osmolality 284 Lactic Acid 3.7 H Calcium 7.8 L D Corrected Calcium 8.0 L Magnesium Total Bilirubin 0.7 AST 16 ALT 15 Alkaline Phosphatase 101 Troponin I B-Natriuretic Peptide Total Protein 6.2 Albumin 3.7 D Globulin 2.5 Albumin/Globulin Ratio 1.5 Lipase Procalcitonin Ur Collection Type Catheter Urine Color Lt-Yellow Urine Clarity Clear Urine pH 5.5 Ur Specific [place] 1.039 H Urine Protein Trace Urine Glucose (UA) 2+ A Urine Ketones Negative Urine Blood 1+ A Urine Nitrite Negative Urine Bilirubin Negative Urine Urobilinogen (Auto) Negative Ur Leukocyte Esterase Negative Urine RBC 29 H Urine WBC 10 H Ur Squamous Epith Cells 1 Urine Bacteria None Urine Opiates Screen Positive A Urine Fentanyl Screen Positive A Ur Barbiturates Screen Negative U Amphetamin/Meth Scrn Positive A U Benzodiazepines Scrn Negative U Cocaine Metab Screen Negative U Marijuana (THC) Screen Negative Blood Type Antibody Screen Blood Bank Wristband ID Quality Measures Quality Measures VTE prophylaxis Advance care planning discussed with:: patient Assessment & Plan Assessment Current Active Medications: Generic Name Dose Route Start Last Admin Trade Name Freq PRN Reason Stop Dose Admin Acetaminophen 650 mg 12/14/24 23:13 Acetaminophen 325 Mg Tablet PO 01/13/25 23:12 Q6H PRN Fever >100.3 or pain 1-3 Protocol Acetaminophen 650 mg 12/14/24 23:13 Acetaminophen Supp 650 Mg Supp WI 01/13/25 23:12 Q6HR PRN Fever > 100.3 or pain 1-3 Protocol Albuterol/Ipratropium 3 ml 12/15/24 00:35 Albuterol/Ipratropium (Duoneb) Rt Amy 3 Ml Nebu INH 01/14/25 00:34 Q4HRRT PRN SHORTNESS OF BREATH Piperacillin/Tazobactam/Dextrose 3.375 gm in 50 mls @ 100 mls/hr 12/15/24 08:12 12/15/24 08:38 Zosyn IV 12/22/24 08:11 100 mls/hr Q8HR STEVEN Administration Ketorolac Tromethamine 15 mg 12/15/24 03:37 Ketorolac Inj 30 Mg/Ml Vial IVP 12/20/24 03:36 Q6H PRN PAIN SCALE 4-6 (Moderate Lidocaine 1 patch 12/15/24 08:40 Lidocaine 5% 1 Patch TOP 01/14/25 08:39 UD PRN PAIN Morphine Sulfate 4 mg 12/15/24 03:37 Morphine Sulf Inj 10 Mg/Ml Vial IVP 12/20/24 03:36 Q4HR PRN PAIN SCALE 7-10 (Severe Ondansetron HCl 4 mg 12/15/24 03:37 Ondansetron Inj 2 Mg/Ml Inj 2 Ml IV 01/14/25 03:36 Q6HR PRN NAUSEA OR VOMITING Protocol Plan 64-year-old male with previous history of inguinal hernia who came into the ED with severe diffuse abdominal pain that is worse on the right side, waxing and waning started approximately 5 AM the previous day. #Right inguinal hernia incarceration s/p surgical reduction #Small bowel obstruction #Large left inguinal hernia Patient has a history of inguinal hernia. Pain has started at 5 AM the previous day. CT showed high grade SBO and incarcerated right inguinal hernia. LA 2.4, downtrended to 1.9. - surgery consulted, aprecciate reccs - pain control as needed -monitor for flatus and BM - adv diet - encouraged ambulation #Lactic acidosis - currently downtrending after IVF administration, patient is also post-op which can increase lactic lvls Health maintenance: FEN: adv diet DVT prophylaxis: SCDs GI prophylaxis: none Dispo: med surg tele bed CODE STATUS: Full code Case discussed with my attending Dr. Steve Azevedo MD PGY-1 Attending Provider Attestation/Addendum IMajo DO, attest that I was physically present for the rivera portions of the service and evaluated the patient with the resident and I reviewed and discussed the case with the resident and agree with the resident's findings and plans of care as documented above Patient seen and eval this a.m. He states that he is feeling well. He has no pain at this time. Patient underwent emergent reduction and repair of right inguinal hernia due to concern for incarcerated right inguinal hernia. Mesh was placed and patient tolerated procedure well. Incisions are clean dry and intact. Abdomen is soft and nondistended. Patient has not passed gas or had bowel movement. Encouraged him to ambulate in room and incentive spirometer ordered. Continue with postop care at this time. Pain control as needed. Will defer advancing diet to surgeon. Patient currently tolerating clear liquid diet. Will follow-up with surgeon recommendations.
[2024-12-15 11:00] LABS: Lactate (Lactic Acid) 4.7 mMol/L (0.4-2.0)
[2024-12-15] MEDS: RINGERS LACTATED 1000 ML 500 ML 999 ML IV (11:20)
--- NOTE | 2024-12-15 12:29 | PD.SURPROG ---
Documentation for date of: 12/15/24 Subjective Subjective Brief History: 64M presenting with painful inguinal hernia. History obtained primarily from at bedside as pt is somewhat sedated from pain medication. Pt has a chronic R inguinal hernia which has been increasing in size over the past few months but as of this morning it became acutely painful prompting him to seek care in ER. He denies any nausea/vomiting but has remained in severe pain, CT concerning for ischemic small bowel contained in his known R inguinal hernia PMH: None PSHx: None Meds: None Allergies: NKDA Family hx: No known CRC Social hx: pt smokes 1-2 ppd Narrative: Pt feels much better today with no current pain, no nausea, tolerating clears and feeling hungry though has not yet passed gas or had a BM. Remaining afebrile, appropriate UOP via garcia Exam Vital Signs Temp Pulse Resp BP Pulse Ox O2 Del Method O2 Flow Rate 97.6 F 75 18 107/63 97 Room Air 2 12/15/24 12:00 12/15/24 12:12/15/24 12:12/15/24 12:12/15/24 12:12/15/24 12:00 12/15/24 03:35 Constitutional Constitutional: no acute distress Routine Respiratory Exam Respiratory: Present no resp distress Routine Exam Comments: R inguinal incision with dermabond c/d/i, no erythema, scrotum returned to its normal size confirmed by pt Results Results: Laboratory Laboratory results: results reviewed Results: Imaging CT scan - abdomen: report reviewed and image reviewed Assessment & Plan Plan 64M presenting with signs and symptoms of incarcerated right inguinoscrotal hernia s/p emergent reduction and primary repair 12/15, recovering well overall Advance to reg diet DC garcia Encourage OOB/ambulation Procedures Procedures Reduction and repair of right inguinal hernia
[2024-12-15 13:49] LABS: Reflex Lactate? Y
[2024-12-15 14:26] LABS: Lactic Acid, 3 HR 3.9 mMol/L (0.4-2.0)
[2024-12-16] VITALS: PULSE 79
[2024-12-16 04:00] VITALS: BP 99/60; PULSE 65; PULSE 75; RESP 19; TEMP 36.2; O2SAT 94
[2024-12-16] MEDS: PIPER/TAZO 3.375 GM PREMIX 3.375 GM/50 ML BAG IV (05:12)
[2024-12-16] MEDS: KETOROLAC INJ 30 MG/ML VIAL 15 MG IVP (05:21)
[2024-12-16 05:32] LABS: Basophils % (Auto) 0 % (0-2.5); Eosinophils % (Auto) 0 % (0-10); Hematocrit 42.6 % (41.0-53.0); Hemoglobin 14.4 g/dL (13.5-16.0); Immature Granulocytes % (Auto) 0 % (0-0); Immature Granulocytes Auto 0.05 Thou/mm3 (0.00-0.00); Lymphocytes # (Auto) 1.6 Thou/mm3 (1.0-4.8); Lymphocytes % (Auto) 10 % (10-50); Mean Corpuscular HGB Conc 33.8 g/dl (31.0-37.0); Mean Corpuscular Hemoglobin 29.9 pg (25.0-35.0); Mean Corpuscular Volume 89 fL (80-100); Monocytes # (Auto) 1.5 Thou/mm3 (0.0-0.8); Monocytes % (Auto) 10 % (0-12); Neutrophils # (Auto) 12.4 Thou/mm3 (1.8-7.7); Neutrophils % (Auto) 79 % (37-80); Nucleated Red Blood Cell % 0 /100 WBC (0); Platelet Count 261 Thou/mm3 (140-440); RDW Standard Deviation 41.4 fL (35.1-43.9); Red Blood Count 4.81 Miln/mm3 (4.50-5.90); White Blood Count 15.6 Thou/mm3 (3.8-10.6)
[2024-12-16 06:03] LABS: Alanine Aminotransferase 13 U/L (10-49); Albumin, Serum 3.7 gm/dL (3.4-4.8); Albumin/Globulin Ratio 1.6 (1.2-2.2); Alkaline Phosphatase 77 U/L (46-116); Anion Gap 9 (7-16); Aspartate Amino Transferase 16 U/L (0-34); BUN/Creatinine Ratio 16 Ratio (12-20); Bilirubin,Total 0.9 mg/dL (0.3-1.2); Blood Urea Nitrogen 19 mg/dL (9-23); Calcium 8.7 mg/dL (8.3-10.6); Calcium (Corrected) 8.9 mg/dL (8.5-10.1); Carbon Dioxide 27.6 mMol/L (20.0-31.0); Chloride 101 mMol/L (98-107); Creatinine (Component) 1.2 mg/dL (0.6-1.3); Estimated Creatinine Clearance 66.5 mL/min (>60); Globulin 2.3 gm/dL (2.3-3.5); Glucose 133 mg/dL (74-106); Magnesium 1.8 mg/dL (1.6-2.6); Osmolality,Calculated 279 (275-295); Phosphorous 2.7 mg/dL (2.4-5.1); Potassium 4.3 mMol/L (3.4-5.1); Sodium 138 mMol/L (136-145); eGFR > 60 See Note
[2024-12-16 08:00] VITALS: BP 123/70; PULSE 63; PULSE 89; RESP 21; TEMP 36.1; O2SAT 95
[2024-12-16 08:31] VITALS: PULSE 63; RESP 18; O2SAT 95
[2024-12-16] MEDS: SENNA/DOCUSATE SOD 1 TAB TABLET PO (09:09)
--- NOTE | 2024-12-16 11:36 | ESDS_ITS ---
<Statement entered by Majo Wilson DO - 12/16/24 16:40> I, Majo Wilson DO, attest that I was physically present for the rivera portions of the service and evaluated the patient with the resident and I reviewed and discussed the case with the resident and agree with the resident's findings and plans of care as documented above Planned Discharge Date 12/16/24 DS: Providers Provider Date of admission: 12/14/24 23:13 Primary care physician: Physician No Primary/Family Admitting Provider: Ken Mariee MD Attending Provider on Admission: Ken Mariee MD Consults: 12/14/24 22:43 Consult to General Surgery Stat Comment: Consulting Provider: Starla Coy Attending Provider on DC: Majo Wilson DO Discharging Provider: Mariano Bryant MD DS: Diagnosis Discharge Diagnosis (1) Inguinal hernia of right side with obstruction: Status: Acute Problem List Completed Was Problem List Reviewed/Reconciled?: Yes Hospital Course Hospital Course Hospital course: Hospital Course: Mr Florez is a greek speaking 64-year-old male with previous history of inguinal hernia who came into the ED with severe diffuse abdominal pain that is worse on the right side, waxing and waning started approximately 5 AM the previous day. CT showed high grade SBO and incarcerated right inguinal hernia. Initially LA 2.4, which downtrended to 1.9 after IV fluids. General surgery was consulted, appreciate recommendations for surgical intervention. Patient Underwent successful reduction and repair of right inguinal hernia on 12/15/2024. He rapidly improved post operatively with minimal pain. At the time of DC, patient was tolerating oral intake, regular diet and had x3 BMs. He was counseled on wound care and advised to follow up with PCP and Dr Coy outpatient post discharge. Problems on this admission: - Right inguinal hernia incarceration s/p surgical reduction - Small bowel obstruction - Large left inguinal hernia - Lactic acidosis Procedures: s/p Reduction and repair of right inguinal hernia - DAY 2 Discharge instructions: - Follow up with Primary Care Provider within 1 week - Take pain medications as need - Please follow up with General Surgery Dr Coy 1 week after discharge - Return to Emergency Department if symptoms worsen We are grateful to be able to participate in Mr Florez' care. We wish him the best. Plan of care discussed with attending Mariano Dick M.D. PGY2 Disclaimer: Minor errors in doll dresser may be present as this note was dictated using voice recognition software. Status at Discharge Cognitive/behavioral status at discharge: stable and returned to baseline Time Spent with Patient Time attestation: Total time spent providing and/or coordinating discharge services: more than 50% Time spent: Greater than 30 minutes Exam Vital Signs Temp Pulse Resp BP Pulse Ox O2 Del Method O2 Flow Rate 97.0 F 63 18 123/70 95 Nasal Cannula 2 12/16/24 08:00 12/16/24 08:31 12/16/24 08:31 12/16/24 08:00 12/16/24 08:31 12/16/24 08:00 12/16/24 08:00 Narrative Exam Physical Exam GENERAL: NAD, AAOx3 HEENT: Moist mucosa. Eyes open, symmetrical, & clear CARDIO: Heart RRR, no obvious murmurs PULM: No noted coughing/dyspnea CTA B/L, no R/W/R GI: Abdomen soft, nondistended, no pain on palpation. BSx4 SKIN/MSK/EXT: No wounds/rashes/edema/amputations, no pain on palpation. Pedal pulses present B/L NEURO: AAOx3, no focal neuro deficits, able to move all 4 extremities Discharge Plan Plan Patient Disposition: HOME (Self Care) Patient condition on transfer: Stable Care Plan Goals: - Follow up with Primary Care Provider within 1 week - Take pain medications as need - Please follow up with General Surgery Dr Coy 1 week after discharge - Return to Emergency Department if symptoms worsen Prescriptions/Referrals Prescriptions/Med Rec: New hydrocodone-acetaminophen 5-325 mg tablet 1 tab PO Q8H MDD 3 PRN (Reason: pain) 3 Days Qty: 9 0RF Referrals: Starla Coy MD [Physician] - (You will receive a phone call to confirm a follow up appt with me in 1 week) No Primary/Family,Physician [Primary Care Provider] - Patient/Caregiver Discharge Instructions Discharge Activity: resume usual activities Education Materials: What Is a Hernia?, Hernia Repair Surgery, Preventing Surgical Site Infections Print Language: Arabic Stand Alone Forms: Kennedi Award Info., Patient Portal Info Letter Discharge Order Discharge Orders: Discharge (Routine); Ordered 12/16/24 Ordered By: Mariano Bryatn Quality Discharge Quality Measures VTE prophylaxis
[2024-12-16 12:00] VITALS: BP 115/76; PULSE 75; PULSE 77; RESP 16; TEMP 36.7; O2SAT 96
--- NOTE | 2024-12-16 13:29 | PC.SS ---
SS made aware of discharge after pt left; SS followed up with medical team; pt did not have any medical needs
== END 2024-12-16 12:55 | disposition home or self-care (01) | DRG 228 ==
LOC: SERX 22:43 → SERHOLD 23:46 → S3SX 12-16 11:28 → SERHOLD 12-18 06:21
PROVIDERS: Physician Assistant; Student in an Organized Health Care Education/Training Program; Surgery; Admitting Provider Student in an Organized Health Care Education/Training Program; Emergency Provider Emergency Medicine; Visit Provider Student in an Organized Health Care Education/Training Program
DX: K40.30 Unilateral inguinal hernia, with obstruction, without gangrene, not specified as recurrent (principal); F17.200 Nicotine dependence, unspecified, uncomplicated; K56.699 Other intestinal obstruction unspecified as to partial versus complete obstruction; E87.20 Acidosis, unspecified
CPT/HCPCS: 36415; 71045; 71275; 74174; 80053; 80307; 81001; 83605; 83690; 83735; 83880; 84100; 84145; 84484; 85025; 85610; 85730; 86850; 86900; 86901; 87040; 93005; 93225; 94664; 96361; 96374; 99291; A4217; A4649; J0171; J0690; J1100; J1171; J1885; J2270; J2371; J2405; J2543; J2704; J3010; J3490; J7030; J7120; Q9967; A9270